=== PATIENT | female | born 1965 | race American Indian/Alaskan Native ===

== ENCOUNTER 2017-01-29 07:21 | Day surgery (SDC) | payer OTHER ==
[2017-01-29 07:50] VITALS: BMI 31.1
[2017-01-29 08:17] VITALS: O2SAT 100
[2017-01-29] MEDS ORDERED: Propofol 10 mg/ml Inj (20 ML) ONE (10:56)
--- NOTE | 2017-01-29 10:56 | CP.SDSHP ---
Same Day Surgery H & P - History Proposed Procedure: endosocpy - Previous Medical/Surgical History Cardiac: Hypertension - Allergies Allergies: Allergies No Known Allergies Allergy (Verified 05/13/16 12:23) - Physical Exam Vital Signs: Vital Signs 01/29/17 08:04 Temperature 97.4 F L Pulse Rate 57 L Respiratory 17 Rate Blood Pressure 133/87 O2 Sat by Pulse 100 Oximetry Mental Status: Alert & Oriented x3 Neuro: WNL Heart: WNL Lungs: WNL GI: WNL - {Optional Preform as Required} Abdomen: WNL - Impression Impression: dysphagia, reflux Pt. Evaluated Today:Candidate for Anesthesia & Procedure: Yes - Date & Time Date: 01/29/17 Time: 10:00 Short Stay Discharge - Short Stay Discharge Admitting Diagnosis/Reason for Visit: ESOPHAGEAL REFLUX Disposition: HOME/ ROUTINE
[2017-01-29] MEDS ORDERED: Lactated Ringer's 1,000 ML IV ONE (11:12)
[2017-01-29 11:35] VITALS: TEMP 96.8
[2017-01-29 12:01] VITALS: BP 157/93; PULSE 64; RESP 13
== END 2017-01-29 12:17 | disposition home or self-care (01) ==
LOC: C.ENDO 07:21
PROVIDERS: ATTEND Internal Medicine Gastroenterology
DX: K20.9 Esophagitis, unspecified (principal); R13.10 Dysphagia, unspecified; K29.70 Gastritis, unspecified, without bleeding
CPT/HCPCS: 43239; 84703; 88305; 88312; 88342; J2001; J2704; J3010; J7120